=== PATIENT | male | born 1995 | race Caucasian/White ===

== ENCOUNTER → 2020-09-08 | Outpatient (CLI) | payer OTHER | LOC: RAD 13:51 | DX: R22.1 Localized swelling, mass and lump, neck (principal) ==

== ENCOUNTER → 2022-03-01 | Outpatient (CLI) | payer BC | LOC: RAD 07:45 → VAS 07:45 → RAD 08:00 | DX: R22.41 Localized swelling, mass and lump, right lower limb (principal); R22.42 Localized swelling, mass and lump, left lower limb ==

== ENCOUNTER → 2022-05-10 | Outpatient (CLI) | payer BC | LOC: LAB 11:59 | DX: K64.4 Residual hemorrhoidal skin tags (principal); N46.9 Male infertility, unspecified; L05.91 Pilonidal cyst without abscess; J30.2 Other seasonal allergic rhinitis ==

== ENCOUNTER → 2022-06-07 | Outpatient (CLI) | payer BC ==
[2022-06-07 08:59] LABS: BASO # 0.04 K/mm3 (0.02-0.10); EOS # 0.26 K/mm3 (0.04-0.40); EOS % 3.4 % (0.0-4.0); HEMATOCRIT 48.6 % (42.0-52.0); HEMOGLOBIN 16.3 g/dL (13.5-18.0); LYMPH# 1.56 K/mm3 (1.50-4.00); MEAN CELL VOLUME 89 fl (78-100); MEAN CORPUSCULAR HEMOGLOBIN 30 pg (27-31); MEAN CORPUSCULAR HGB CONC 34 g/dL (33-37); MEAN PLATELET VOLUME 8.4 fl (7.4-10.4); MONO # 0.59 K/mm3 (0.20-0.80); PLATELET COUNT 277 K/mm3 (130-400); RED BLOOD COUNT 5.44 M/mm3 (4.20-5.60); RED CELL DISTRIBUTION WIDTH 12.1 % (11.5-14.5); WHITE BLOOD COUNT 7.6 K/mm3 (4.8-10.8)
[2022-06-07 09:04] LABS: ALBUMIN 4.6 g/dL (3.5-5.0); POTASSIUM 4.8 mmol/L (3.5-5.1)
[2022-06-07 09:05] LABS: CALCIUM 10.3 mg/dL (8.3-10.5)
[2022-06-07 09:06] LABS: TOTAL PROTEIN 7.1 g/dL (6.4-8.3)
[2022-06-07 09:08] LABS: TOTAL BILIRUBIN 0.9 mg/dL (0.2-1.2)
== END ==
LOC: LAB 07:44
PROVIDERS: Nurse Practitioner
DX: R59.0 Localized enlarged lymph nodes (principal)